=== PATIENT | male | born 1985 | race Caucasian/White ===

== ENCOUNTER 2019-06-10 20:10 | Emergency (ER) | payer BC ==
[~2019-06-10] VITALS: Ht 165.1 cm; Wt 73.9 kg
[~2019-06-10 20:10] MED LIST: NORCO 5-325 TA1 EACH PO
[2019-06-10] MEDS ORDERED: NORCO 5-325 TA1 EAC1 PO (21:17)
[2019-06-10] MEDS ORDERED: DOXYCYCLINE 10100 MG PO (21:20)
[2019-06-10 21:45] VITALS: BP 149/67
== END 2019-06-10 21:40 | disposition home or self-care (01) ==
LOC: ER 20:10
DX: S67.195A Crushing injury of left ring finger, initial encounter (principal); Z88.0 Allergy status to penicillin; W20.8XXA Other cause of strike by thrown, projected or falling object, initial encounter; Y92.89 Other specified places as the place of occurrence of the external cause; Y93.89 Activity, other specified; Y99.8 Other external cause status